=== PATIENT | female | born 1985 | race Caucasian/White ===

== ENCOUNTER 2019-04-04 09:20 | Emergency (ER) | payer OTHER ==
[2019-04-04 09:26] VITALS: BP 111/65
[2019-04-04] MEDS ORDERED: IBUPROFEN 600 MG TABLET PO STA (10:00)
--- NOTE | 2019-04-04 10:03 | ED Physician Documentation ---
PD HPI HEENT - Stated complaint Stated Complaint: SORE THROAT - Chief complaint Chief Complaint: Heent - History obtained from History obtained from: Patient - History of Present Illness Timing - onset: Yesterday Timing - details: Still present Location: Throat Worsens: Swalllowing Associated symptoms: Swollen nodes Similar symptoms before: Has not had sx before - Additional information Additional information: The patient is a 33-year-old female who presents with sore throat that started yesterday and is worse this morning. She has noticed "white spots" on her tonsils. She denies fever or cough. She does report associated headache and earache. She denies history of similar symptoms in the past. Review of Systems Constitutional: reports: Fatigue. denies: Fever Eyes: denies: Irritation Ears: reports: Ear pain (mild) Nose: denies: Congestion Throat: reports: Sore throat Cardiac: denies: Chest pain / pressure Respiratory: denies: Dyspnea, Cough GI: denies: Abdominal Pain, Nausea, Vomiting Skin: denies: Rash Musculoskeletal: denies: Neck pain Neurologic: reports: Headache (mild). denies: Focal weakness, Numbness PD PAST MEDICAL HISTORY - Past Medical History Past Medical History: No Psych: Depression - Past Surgical History Past Surgical History: Yes General: Cholecystectomy /BAR CAPTAIN: section HEENT: Tonsil/Adenoidectomy - Present Medications Home Medications: Ambulatory Orders Medication Instructions Recorded Confirmed FLUoxetine [PROzac] 40 mg PO DAILY 04/04/19 04/04/19 Hydrocodone/Acetaminophen 1 - 2 each PO Q6H PRN #10 tablet 04/04/19 [Hydrocodon-Acetaminophen 5-325] Penicillin V Potassium 500 mg PO Q6HR #40 tablet 04/04/19 - Allergies Allergies/Adverse Reactions: Allergies Allergy/AdvReac Type Severity Reaction Status Date / Time No Known Drug Allergies Allergy Verified 04/04/19 09:25 - Social History Does the pt smoke?: Yes Smoking Status: Never smoker Does the pt drink ETOH?: No Does the pt have substance abuse?: No - Immunizations Immunizations are current?: Yes PD ED PE NORMAL - Vitals Vital signs reviewed: Yes (normal) - General General: Alert and oriented X 3, Well developed/nourished - HEENT HEENT: Atraumatic, EOMI, Ears normal, Other (Oropharynx is erythematous with enlarged tonsils with exudates bilaterally.) - Neck Neck: Supple, no meningeal sign, Other (Enlarged anterior cervical nodes bilaterally.) - Cardiac Cardiac: RRR - Respiratory Respiratory: No respiratory distress, Clear bilaterally - Abdomen Abdomen: Soft, Non tender - Derm Derm: No rash - Extremities Extremities: No edema - Neuro Neuro: Alert and oriented X 3, No motor deficit, Normal speech Results - Vitals Vitals: Vital Signs - 24 hr 04/04/19 09:25 Temperature 36.2 C L Heart Rate 71 Respiratory 18 Rate Blood Pressure 111/65 O2 Saturation 99 Oxygen O2 Source Room air - Labs Labs: Laboratory Tests 04/04/19 09:28 Group A Strep Rapid POSITIVE H PD MEDICAL DECISION MAKING - ED course Complexity details: reviewed results, re-evaluated patient, considered differential, d/w patient ED course: The patient's presentation is most consistent with acute strep pharyngitis, with a positive rapid strep screen. There is no clinical evidence of peritonsillar abscess. Treatment in the emergency department included administration of penicillin 500 mg orally, and ibuprofen 600 mg orally. She is being discharged with prescription for penicillin. I discussed with her the expected course of illness, antibiotic treatment and outpatient follow-up, as well as potentially worrisome signs or symptoms that should prompt reevaluation in the emergency department. Departure - Departure Disposition: 01 Home, Self Care Clinical Impression: Acute streptococcal pharyngitis Condition: Stable Instructions: ED Strep Pharyngitis Conf Follow-Up: [facility] [Provider Group] Prescriptions: Penicillin V Potassium 500 mg PO Q6HR #40 tablet Hydrocodone/Acetaminophen [Hydrocodon-Acetaminophen 5-325] 1 - 2 each PO Q6H PRN #10 tablet PRN Reason: pain Comments: Gargle with cool liquids. Take penicillin 4 times daily as prescribed. You can use ibuprofen, up to 600 mg 3 times daily for anti-inflammatory effect. You can also use Vicodin as prescribed if needed for pain. Follow-up with your primary physician within 2 weeks. Call to schedule an appointment. Return to the emergency department if you develop increasing difficulty swallowing, or otherwise worsening symptoms.
[2019-04-04] MEDS ORDERED: PENICILLIN VK 250 MG TABLET PO STA (10:08)
== END 2019-04-04 10:19 | disposition home or self-care (01) ==
LOC: ED 09:20
DX: J02.0 Streptococcal pharyngitis (principal)
CPT/HCPCS: 87430; 99283; 99284; A9270; 87070